=== PATIENT | female | born 1945 | race Caucasian/White ===

== ENCOUNTER 2020-07-21 05:03 | Day surgery (SDC) | payer OTHER, BC ==
[2020-07-20 15:15] VITALS: BMI 21.4
[2020-07-21 10:31] VITALS: TEMP 97.6
[2020-07-21 10:54] VITALS: PULSE 72
[2020-07-21 12:09] VITALS: BP 132/72
== END 2020-07-21 11:30 | disposition home or self-care (01) ==
LOC: JASU-ENDO 05:03
PROVIDERS: ATTEND Internal Medicine Gastroenterology
PROC: 0DJD8ZZ Inspection of Lower Intestinal Tract, Via Natural or Artificial Opening Endoscopic (ICD-10-PCS; principal; 2020-07-21 10:00)
DX: Z12.11 Encounter for screening for malignant neoplasm of colon (principal); I10 Essential (primary) hypertension; K59.00 Constipation, unspecified; E06.3 Autoimmune thyroiditis; I48.0 Paroxysmal atrial fibrillation; Z79.01 Long term (current) use of anticoagulants; Z86.19 Personal history of other infectious and parasitic diseases; Z86.711 Personal history of pulmonary embolism; Z86.718 Personal history of other venous thrombosis and embolism; Z88.5 Allergy status to narcotic agent